=== PATIENT | female | born 1980 | race Caucasian/White ===

== ENCOUNTER → 2018-11-02 07:42 | Outpatient (CLI) | payer BC, SELFPAY ==
--- NOTE | 2018-11-02 | DI.US.S_ITS ---
PROCEDURE: US EXTREMITY NONVASC LOWER RT INDICATIONS: SOFT TISSUE MASS OF RIGHT MEDIAL PROXIMAL THIGH TECHNIQUE: Real-time scanning was performed of the right medial upper leg, with image documentation. COMPARISON: None. FINDINGS: At the patient directed area of palpable concern involving the medial aspect of the right thigh, there is a superficial, subcutaneous mass measuring 3.0 x 1.2 x 2.7 cm. It is wider than tall and ovoid in shape. It is heterogeneously hypoechoic without internal vascularity. There are scattered areas of internal cystic components. IMPRESSION: Circumscribed, oval, wider than tall heterogeneously hypoechoic avascular mass in the medial right thigh which corresponds to palpable area of patient concern. This is in close proximity to reported region of recent liposuction and probably represents a hematoma/seroma. Recommend short interval followup ultrasound in 4-6 weeks to document continued stability versus resolution as the patient reports that it is getting smaller. Dictated by: Magen Douglas M.D. on 11/02/2018 at 10:43 Approved by: Magen Douglas M.D. on 11/02/2018 at 10:48
== END ==
PROVIDERS: Family Provider Registered Nurse; PCP Obstetrics & Gynecology; Visit Provider Registered Nurse
DX: M79.89 Other specified soft tissue disorders (principal)
CPT/HCPCS: 76882

== ENCOUNTER 2021-07-19 10:32 | Emergency (ER) | payer OTHER, MEDICAID, SELFPAY ==
[2021-07-19] VITALS (17 sets, daily range): BP systolic 120–138; BP diastolic 75–85; PULSE 47–71; RESP 11–29; TEMP 36.8; O2SAT 97–100; BMI 22.2
[2021-07-19 11:30] LABS: Add Manual Diff / Slide Review NO; Basophils Absolute Auto 0 /uL (0-100); Eosinophils Absolute Auto 100 /uL (0-450); Eosinophils Percent Auto 2.4 % (2-4); Lymphocytes Absolute Auto 1100 /uL (1100-4500); Lymphocytes Percent Auto 30.7 % (25-40); Mean Corpuscular HGB Conc 33.4 % (30-36); Mean Corpuscular Volume 92.7 fL (80-100); Monocytes Absolute Auto 300 /uL (0-900); Monocytes Percent Auto 8.8 % (3-14); Neutrophils Absolute Auto 2000 /uL (1500-7000); Neutrophils Percent Auto 57.1 % (50-75); Platelet Count 262 X10^3/uL (150-400); Red Blood Cell Count 4.21 X10^6/uL (4.0-5.2); Red Cell Distribution Width 13.6 % (11.6-14.8); White Blood Cell Count 3.5 X10^3/uL (4.5-11.0)
[2021-07-19 11:38] LABS: Alanine Aminotransferase 13 IU/L (<35); Albumin 4.4 g/dL (3.5-5.0); Albumin Globulin Ratio 1.6 (1.0-2.8); Alkaline Phosphatase 51 U/L (38-126); Aspartate Aminotransferase 24 IU/L (14-36); BUN Creatinine Ratio 17.2 (6-22); Bilirubin Total 0.4 mg/dL (0.2-1.3); Blood Urea Nitrogen 11 mg/dL (7-17); Calcium 9.2 mg/dL (8.4-10.2); Carbon Dioxide 23 mmol/L (22-32); Chloride 104 mmol/L (98-107); Estimated Glomerular Filt Rate > 60.0 mL/min (>60); Globulin 2.7 g/dL (1.7-4.1); Glucose 115 mg/dL (70-100); HEMOLYSIS 19 (0-50); Lipase 261 U/L (23-300); Potassium 4.2 mmol/L (3.4-5.1); Sodium 135 mmol/L (137-145); Total Protein 7.1 g/dL (6.3-8.2)
--- NOTE | 2021-07-19 12:37 | ED_ITS ---
HPI - Abdominal Pain General Chief Complaint: Abdominal Pain Stated Complaint: severe abd pain and low back pain Time Seen by Provider: 07/19/21 12:37 Source: patient Mode of arrival: Ambulatory Limitations: no limitations History of Present Illness HPI narrative: The patient presents with right lower quadrant pain. She has started developing the pain yesterday, increased today. She had coffee for breakfast, nothing else to eat or drink. She is not vomiting. She has no diarrhea constipation. She denies fever. She has no URI complaints. She has no chest discomfort or dyspnea. She denies dysuria or hematuria. She has no back pain. She has undergone hysterectomy. Her ovaries are still in place. Related Data Home Medications Medication Instructions Recorded Confirmed lorazepam 1 mg tablet 1 mg PO PRN PRN #0 09/10/16 fluoxetine 20 mg capsule #0 11/19/17 lorazepam 0.5 mg tablet #0 11/19/17 topiramate 25 mg tablet #0 11/19/17 Previous Rx's Medication Instructions Recorded zolpidem 5 mg tablet 5 mg PO HS #30 tab 10/03/16 methocarbamol 750 mg tablet 750 mg PO QIDP PRN #20 tab 11/19/17 azithromycin 250 mg tablet 250 mg PO QDAY #6 tab 12/17/17 (Zithromax Z-Olaf) benzonatate 100 mg capsule 100 mg PO TIDP PRN #30 cap 12/17/17 (Tessalon Perles) Allergies Allergy/AdvReac Type Severity Reaction Status Date / Time morphine [MORPHINE] Allergy Severe RESTRICTS Verified 07/19/21 10:59 AIRWAY codeine [CODEINE] Allergy Mild FACIAL Verified 07/19/21 10:59 SWELLING - RASH hydrocodone [HYDROCODONE] Allergy Mild FACIAL Verified 07/19/21 10:59 SWELLING - RASH Review of Systems Constitutional Constitutional: Denies chills, Denies fever(s), Denies frequent falls, Denies lethargy and Denies weakness ENT Ears, Nose, Mouth, and Throat: Denies change in voice, Denies dizziness, Denies neck pain and Denies sore throat Cardiovascular Cardiovascular: Denies chest pain, Denies irregular heart rhythm, Denies lightheadedness, Denies palpitations, Denies dyspnea, Denies dyspnea on exertion and Denies orthopnea Respiratory Respiratory: Denies cough, Denies dyspnea, Denies dyspnea on exertion and Denies wheezing Gastrointestinal Gastrointestinal: Reports as per HPI Musculoskeletal Musculoskeletal: Denies neck pain and Denies numbness Neurologic Neurologic: Denies behavioral changes, Denies confusion, Denies dizziness, Denies frequent falls, Denies numbness and Denies weakness Psychiatric Psychiatric: Denies behavioral changes and Denies confusion Endocrine Endocrine: Denies palpitations Allergic/Immunologic Allergic/Immunologic: Denies wheezing Patient History Surgical History (Updated 01/19/18 @ 06:32 by Conversion Provider) History of breast augmentation History of third molar tooth extraction Status post hysterectomy (09/19/16) Status post loop electrosurgical excision procedure (LEEP) of cervix Social History (System 01/14/18 @ 09:17 by Jacinta Maxwell) Smoking Status: Unknown if ever smoked Smoking Status: Unknown if ever smoked alcohol intake frequency: holidays/special occasions only Substance Use Type: does not use Exam Initial Vital Signs Initial Vital Signs: Vital Signs Temperature 98.2 F 07/19/21 10:55 Pulse Rate 55 L 07/19/21 10:55 Respiratory Rate 14 07/19/21 10:55 Blood Pressure 138/75 07/19/21 10:55 Pulse Oximetry 99 07/19/21 10:55 Const General: cooperative HENMT Head: normocephalic and atraumatic Ears: external ears normal and TM's normal bilaterally Nose: external nose normal and No nasal discharge Face and sinus: sinuses nontender, face symmetric, no sinus tenderness and No dry mucous membranes Mouth: oral mucosae normal and moist mucous membranes Teeth and gingiva: dentition normal Throat: tonsils normal and uvula midline Eyes General: appearance normal, both eyes and all related structures Eyelids: eyelids normal Conjunctivae: conjunctivae normal Sclera: sclerae normal Pupils: PERRL EOM: EOM intact bilaterally Resp Effort & Inspection: normal respiratory effort, able to speak in complete sentences, no respiratory distress and no use of accessory muscles Auscultation: clear to auscultation bilaterally, no rales, no rhonchi and no wheezes Cardio Rate: regular rate Rhythm: regular rhythm Heart Sounds: no click, no gallops, no murmurs and no rubs Pulses: normal peripheral pulses GI Inspection: normal to inspection Palpation: soft and tender (RLQ tenderness without distention, guarding rebound. Negative heel tap.) Percussion: normal to percussion Auscultation: normal bowel sounds Skin General: no rashes or lesions noted, No jaundice and No petechiae Extrem General: full ROM, no clubbing, cyanosis or edema, no pedal edema and no calf tenderness Psych Appearance: well kempt Mental Status: mental status grossly normal Attitude: cooperative Thought Content: normal and suicidality Judgment: judgment good Course Course Course Narrative: Ultrasound suggested an ovarian cyst as the right lower quadrant pain. After receiving Toradol and repeating the exam, her pain seemed to increase. CT was done, indicating a normal appendix. Dilaudid was given, her pain is now much better. We discussed pain medications, she has decided use Advil only. Orders Ordered: ED Orders 07/19/21 10:58 EKG-12 Lead Stat 07/19/21 11:18 Complete Blood Count AUTO DIFF Stat Comprehensive Metabolic Panel Stat Lipase Stat 07/19/21 12:44 US pelvic complete Stat 07/19/21 15:40 CT abdomen pelvis w con Stat Discontinued Medications Hydromorphone HCl (Hydromorphone 1 Mg Inj) 1 mg IV NOW ONE Stop: 07/19/21 15:41 Last Admin: 07/19/21 15:57 Dose: 1 mg Documented by: ATAYLOR Sodium Chloride (Normal Saline 0.9%) 1,000 mls @ 1,000 mls/hr IV BOLUS ONE Stop: 07/19/21 13:42 Last Infusion: 07/19/21 15:40 Dose: 0 mls/hr Documented by: Admin: 07/19/21 12:50 Dose: 1,000 mls/hr Documented by: ATAYLOR Ketorolac Tromethamine (Ketorolac 30 Mg/Ml Vial) 30 mg IV NOW ONE Stop: 07/19/21 12:44 Last Admin: 07/19/21 12:50 Dose: 30 mg Documented by: ATAYLOR Vital Signs Vital signs: Vital Signs - 8 hr 07/19/21 10:55 07/19/21 11:27 07/19/21 11:30 Temperature 98.2 F Pulse Rate 55 L 51 L 50 L Respiratory Rate 14 16 17 Blood Pressure 138/75 Pulse Oximetry 99 100 100 07/19/21 12:00 07/19/21 12:30 07/19/21 12:34 Temperature Pulse Rate 56 L 51 L 51 L Respiratory Rate 24 19 27 H Blood Pressure 133/77 Pulse Oximetry 99 100 98 07/19/21 13:00 07/19/21 13:30 07/19/21 14:00 Temperature Pulse Rate 47 L 58 L 59 L Respiratory Rate 29 H 19 16 Blood Pressure Pulse Oximetry 100 100 99 MDM - Abdominal Pain Lab Data Result diagrams: 07/19/21 11:18 07/19/21 11:18 Labs: Lab Results 07/19/21 07/19/21 Range/Units 11:18 11:18 WBC 3.5 L (4.5-11.0) X10^3/uL RBC 4.21 (4.0-5.2) X10^6/uL Hgb 13.0 (12.0-16.0) g/dL Hct 39.0 (36-46) % MCV 92.7 (80-100) fL MCH 31.0 (26-34) PG MCHC 33.4 (30-36) % RDW 13.6 (11.6-14.8) % Plt Count 262 (150-400) X10^3/uL Neut % (Auto) 57.1 (50-75) % Lymph % (Auto) 30.7 (25-40) % [place] % (Auto) 8.8 (3-14) % Eos % (Auto) 2.4 (2-4) % Baso % (Auto) 1.0 (0-2) % Neut # (Auto) 2000 (2280-9230) /uL Lymph # (Auto) 1100 (5509-6517) /uL [place] # (Auto) 300 (0-900) /uL Eos # (Auto) 100 (0-450) /uL Baso # (Auto) 0 (0-100) /uL Sodium 135 L (137-145) mmol/L Potassium 4.2 (3.4-5.1) mmol/L Chloride 104 (98-107) mmol/L Carbon Dioxide 23 (22-32) mmol/L BUN 11 (7-17) mg/dL Creatinine 0.64 (0.52-1.04) mg/dL Estimated GFR > 60.0 (>60) mL/min BUN/Creatinine Ratio 17.2 (6-22) Glucose 115 H (70-100) mg/dL Calcium 9.2 (8.4-10.2) mg/dL Total Bilirubin 0.4 (0.2-1.3) mg/dL AST 24 (14-36) IU/L ALT 13 (<35) IU/L Alkaline Phosphatase 51 (38-126) U/L Total Protein 7.1 (6.3-8.2) g/dL Albumin 4.4 (3.5-5.0) g/dL Globulin 2.7 (1.7-4.1) g/dL Albumin/Globulin Ratio 1.6 (1.0-2.8) Lipase 261 (23-300) U/L Point of care testing: Urine Dip Bedside Urine Glucose Negative Bedside Urine Bilirubin - Negative Bedside Urine Ketone - Negative Urine Specific [place] 1.030 Bedside Urine Occult Blood - Negative Bedside Urine pH 6.0 Bedside Urine Protein - Negative Bedside Urine Urobilinogen - Negative Bedside Urine Nitrite - Negative Bedside Urine Leukocytes - Negative Esterase Imaging Data CT scan - abdomen/pelvis: Radiologist's Impression: [address] [address] [address] Scan Report Signed Patient: Sariah Santana MR#: [id number] : 1980 Acct:[id number] Age/Sex: 41 / F Date of Service: 07/19/21 Loc: ED Accession Number: [id number] ?? Procedure: CT abdomen pelvis w con Ordering Provider: Randal Bragg MD PROCEDURE:? CT ABDOMEN PELVIS W CON ? INDICATIONS:? RLQ pain ? TECHNIQUE:? After the administration of intravenous contrast, axial sections acquired from the lung bases to the pubic symphysis.? Coronal and sagittal reformats were performed.? For radiation dose reduction, the following was used:? automated exposure control, adjustment of mA and/or kV according to patient size.? ? COMPARISON:? None. ? FINDINGS: ? Lower thorax: The lung bases are clear.? Heart size normal. No hiatal hernia. ? Liver:? Normal in size and attenuation. No contour deformity present. ? Biliary system:? No calcified cholelithiasis or pericholecystic inflammation. No intra or extrahepatic bile duct dilatation. ? Pancreas:? Unremarkable without mass or inflammation evident. ? Spleen:? Normal in size and density. ? Adrenals:? Normal morphology and density. ? Reproductive system:? Hysterectomy. ? Urinary system:? Normal renal size and attenuation.? 1 cm left renal cortical cyst.? No renal calculi, hydronephrosis, or solid mass present.? Urinary bladder unremarkable. ? Gastrointestinal system:? The bowel is unremarkable without evidence of bowel obstruction or inflammation. The stomach appears unremarkable.? Moderate fecal debris in the right colon. ? Appendix:? Normal appendix identified.? No evidence of appendicitis. ? Peritoneal spaces:? No mesenteric or retroperitoneal adenopathy.? No free air.? [id number] amount of free fluid in the pelvis.? ? Vasculature:? The IVC, aorta and iliac vasculature are unremarkable. ? Abdominal wall:? Abdominal wall intact without evidence of ventral or inguinal hernias. ? Musculoskeletal:? Normal bone mineralization.? No acute fractures.? ? IMPRESSION: ? 1. Normal appendix.? No evidence of appendicitis. 2. Mild to moderate free fluid in the pelvis.? Consider follow-up ultrasound evaluation. 3. Moderate fecal debris in the right colon.? Pelvic ultrasound: Radiologist's Impression: Close Abdomen/Pelvis CT (Signed) Edgar Austin - 07/19/21 Pelvis Ultrasound (Signed) Marina Hines - 07/19/21 [address] [address] Ultrasound Report Signed Patient: Sariah Santana MR#: [id number] : 1980 Acct:[id number] Age/Sex: 41 / F Date of Service: 07/19/21 Loc: ED Accession Number: [id number] ?? Procedure: US pelvic complete Ordering Provider: Randal Bragg MD PROCEDURE:? US PELVIC COMPLETE ? INDICATIONS:? RLQ PAIN ? TECHNIQUE:? Real-time scanning was performed of the pelvic organs, with image documentation.? Additional endovaginal scanning was necessary due to incomplete visualization of the adnexal and endometrial structures by transabdominal scanning.? ? COMPARISON:? None. ? FINDINGS:? ?? Uterus:? Removed. ? Ovaries:? Right ovary measures 5.3 x 2.7 x 3.2 cm.? Left ovary measures 3.8 x 1.7 x 2.0 cm.? Arterial and venous flow are identified bilaterally.? Ovarian follic les/small cysts are noted bilaterally.? There is a cyst versus follicle within the right ovary measuring 1.4 x 1.3 cm with a focus of increased nodular echogenicity measuring 7 x 8 x 7 mm.? ? Other: ? No pathologic free abdominal or pelvic fluid. ? IMPRESSION:? ? 1. Multiple small cysts versus follicles in the ovaries bilaterally more prominent on the right.? As noted above, echogenic focus is present within a follicle/cyst in the right ovary possibly representing partially collapsed cellular debris.? 6 week interval follow-up is recommended to document resolution. ? Dictated by: Marina Hines M.D. on 07/19/2021 at 15:02 ? ? Approved by: Marina Hines M.D. on 07/19/2021 at 15:09?? Discharge Plan Departure Patient Disposition: Home Clinical Impression: Ovarian cyst Qualifiers: Laterality: bilateral Qualified Code(s): N83.201 - Unspecified ovarian cyst, right side Instructions: DI for Ovarian Cyst Activity Restrictions/Additional Instructions: Advil 3 tablets every 6 hours as needed for pain. If symptoms worsen significantly return here. Plan on following up with soil field technician about a month for recheck. Prescriptions: No Action lorazepam 1 MG tablet 1 mg PO PRN PRNQty: 0 RF: 0 zolpidem 5 MG tablet 5 mg PO HS Qty: 30 RF: 1 lorazepam 0.5 MG tablet Qty: 0 RF: 0 fluoxetine 20 MG capsule Qty: 0 RF: 0 topiramate 25 MG tablet Qty: 0 RF: 0 methocarbamol 750 MG tablet 750 mg PO QIDP PRNQty: 20 RF: 0 azithromycin [Zithromax Z-Olaf] 250 MG tablet 250 mg PO QDAY Qty: 6 RF: 0 benzonatate [Tessalon Perles] 100 MG capsule 100 mg PO TIDP PRNQty: 30 RF: 0 Referrals: Juliet Mendez MD [Primary Care Provider] -
--- NOTE | 2021-07-19 12:44 | DI.US.S_ITS ---
PROCEDURE: US PELVIC COMPLETE INDICATIONS: RLQ PAIN TECHNIQUE: Real-time scanning was performed of the pelvic organs, with image documentation. Additional endovaginal scanning was necessary due to incomplete visualization of the adnexal and endometrial structures by transabdominal scanning. COMPARISON: None. FINDINGS: Uterus: Removed. Ovaries: Right ovary measures 5.3 x 2.7 x 3.2 cm. Left ovary measures 3.8 x 1.7 x 2.0 cm. Arterial and venous flow are identified bilaterally. Ovarian follicles/small cysts are noted bilaterally. There is a cyst versus follicle within the right ovary measuring 1.4 x 1.3 cm with a focus of increased nodular echogenicity measuring 7 x 8 x 7 mm. Other: No pathologic free abdominal or pelvic fluid. IMPRESSION: 1. Multiple small cysts versus follicles in the ovaries bilaterally more prominent on the right. As noted above, echogenic focus is present within a follicle/cyst in the right ovary possibly representing partially collapsed cellular debris. 6 week interval follow-up is recommended to document resolution. Dictated by: Marina Hines M.D. on 07/19/2021 at 15:02 Approved by: Marina Hines M.D. on 07/19/2021 at 15:09
[2021-07-19] MEDS: SODIUM CHLORIDE 0.9% 1,000 ML 1000 ML IV (12:50)
[2021-07-19] MEDS: KETOROLAC 30 MG/ML VIAL IV (12:50)
--- NOTE | 2021-07-19 15:40 | DI.CT.S_ITS ---
PROCEDURE: CT ABDOMEN PELVIS W CON INDICATIONS: RLQ pain TECHNIQUE: After the administration of intravenous contrast, axial sections acquired from the lung bases to the pubic symphysis. Coronal and sagittal reformats were performed. For radiation dose reduction, the following was used: automated exposure control, adjustment of mA and/or kV according to patient size. COMPARISON: None. FINDINGS: Lower thorax: The lung bases are clear. Heart size normal. No hiatal hernia. Liver: Normal in size and attenuation. No contour deformity present. Biliary system: No calcified cholelithiasis or pericholecystic inflammation. No intra or extrahepatic bile duct dilatation. Pancreas: Unremarkable without mass or inflammation evident. Spleen: Normal in size and density. Adrenals: Normal morphology and density. Reproductive system: Hysterectomy. Urinary system: Normal renal size and attenuation. 1 cm left renal cortical cyst. No renal calculi, hydronephrosis, or solid mass present. Urinary bladder unremarkable. Gastrointestinal system: The bowel is unremarkable without evidence of bowel obstruction or inflammation. The stomach appears unremarkable. Moderate fecal debris in the right colon. Appendix: Normal appendix identified. No evidence of appendicitis. Peritoneal spaces: No mesenteric or retroperitoneal adenopathy. No free air. [id number] amount of free fluid in the pelvis. Vasculature: The IVC, aorta and iliac vasculature are unremarkable. Abdominal wall: Abdominal wall intact without evidence of ventral or inguinal hernias. Musculoskeletal: Normal bone mineralization. No acute fractures. IMPRESSION: 1. Normal appendix. No evidence of appendicitis. 2. Mild to moderate free fluid in the pelvis. Consider follow-up ultrasound evaluation. 3. Moderate fecal debris in the right colon. Approved by: Edgar Austin M.D. on 07/19/2021 at 15:51
[2021-07-19] MEDS: HYDROMORPHONE 1 MG INJ IV (15:57)
== END 2021-07-19 17:09 | disposition home or self-care (01) ==
PROVIDERS: Emergency Provider Emergency Medicine; Family Provider Registered Nurse; PCP Obstetrics & Gynecology
DX: N83.201 Unspecified ovarian cyst, right side (principal)
CPT/HCPCS: 36415; 74177; 76830; 76856; 80053; 81003; 83690; 85025; 93005; 96361; 96374; 96375; 99284; J1170; J1885